=== PATIENT | female | born 1970 | race Caucasian/White ===

== ENCOUNTER 2016-04-22 13:05 | Emergency (ER) | payer OTHER ==
[2016-04-22 13:19] VITALS: BP 116/82; PULSE 73; RESP 16; TEMP 98.4; O2SAT 100
--- NOTE | 2016-04-22 13:28 | UCPHY ---
H & P Patient Type: Established Chief Complaint Nursing Narrative: rolled l ankle today, pain, slight swelling Time Seen by Provider: 04/22/16 13:19 HPI/ROS: CHIEF COMPLAINT: Left foot pain HISTORY OF PRESENT ILLNESS: Patient is a 45-year-old female who comes to the Urgent Care complaining of left foot pain. She states that around 10 o'clock this morning she was in a exercise class and stepped on a weight that was on the floor. She inverted her foot and has pain over the lateral midfoot. It radiates through to the bottom. No pain in ankle or heel. She has been able to ambulate. She denies other injuries. REVIEW OF SYSTEMS: Constitutional: denies: chills, fever, recent illness, recent injury EENTM: denies: blurred vision, double vision, nose congestion Respiratory: denies: cough, shortness of breath Cardiac: denies: chest pain, irregular heart rate, lightheadedness, palpitations Gastrointestinal/Abdominal: denies: abdominal pain, diarrhea, nausea, vomiting, blood streaked stools Genitourinary: denies: dysuria, frequency, hematuria, pain Musculoskeletal: See HPI Skin: denies: lesions, rash, jaundice, bruising Neurological: denies: headache, numbness, paresthesia, tingling, dizziness, weakness Hematologic/Lymphatic: denies: blood clots, easy bleeding, easy bruising Immunologic/allergic: denies: HIV/AIDS, transplant EXAM: GENERAL: Well-appearing, well-nourished and in no acute distress. HEAD: Atraumatic, normocephalic. EYES: Pupils equal round and reactive to light, extraocular movements intact, sclera anicteric, conjunctiva are normal. ENT: TMs normal, nares patent, oropharynx clear without exudates. Moist mucous membranes. NECK: Normal range of motion, supple without lymphadenopathy or JVD. LUNGS: Breath sounds clear to auscultation bilaterally and equal. No wheezes rales or rhonchi. HEART: Regular rate and rhythm without murmurs, rubs or gallops. ABDOMEN: Soft, nontender, normoactive bowel sounds. No guarding, no rebound. No masses appreciated. BACK: No CVA tenderness, no spinal tenderness, step-offs or deformities EXTREMITIES: See HPI NEUROLOGICAL: Cranial nerves II through XII grossly intact. Normal speech, normal gait. 5/5 strength, normal movement in all extremities, normal sensation PSYCH: Normal mood, normal affect. SKIN: Warm, dry, normal turgor, no visible rashes or lesions. Source: Patient Exam Limitations: No limitations - Personal History LMP (Females 10-55): 1-7 Days Ago - Medical/Surgical History Hx Asthma: No Hx Chronic Respiratory Disease: No Hx Diabetes: No Hx Cardiac Disease: No Hx Renal Disease: No Hx Cirrhosis: No Hx Alcoholism: No Hx HIV/AIDS: No Hx Splenectomy or Spleen Trauma: No Other PMH: denies - Family History Significant Family History: No pertinent family hx - Social History Smoking Status: Never smoked Alcohol Use: Sober Drug Use: None Constitutional: Initial Vital Signs Temperature (C) 36.9 C 04/22/16 13:17 Heart Rate 73 04/22/16 13:17 Respiratory Rate 16 04/22/16 13:17 Blood Pressure 116/82 H 04/22/16 13:17 O2 Sat (%) 100 04/22/16 13:17 O2 Delivery Mode Room Air Allergies/Adverse Reactions: No Known Allergies Allergy (Verified 11/18/13 15:50) Home Medications: Medication Instructions Recorded NK [No Known Home Meds] 04/22/16 Medical Decision Making - Diagnostics Imaging: X-ray: Ankle and foot was obtained. I viewed the images myself on the PACS system. My interpretation of the images is: negative for acute disease . The radiologist interpretation is negative. ED Course/Re-evaluation: Discussed the x-ray results. The patient is relieved. I will wrapped in an Neto wrap and encouraged her to continue ice, rest and anti-inflammatories. She agrees with this plan and will follow up with her primary physician. She declines further workup or testing. Differential Diagnosis: Partial list of the Differential diagnosis considered include but were not limited to; foot fracture, ankle fracture, ankle sprain, foot sprain and although unlikely based on the history and physical exam, I also considered knee injury infection, gout, arthritis. I discussed these differential diagnoses and the plan with the patient as well as the usual and expected course. The patient understands that the diagnosis is provisional and that in medicine we are not always correct and that further workup is often warranted. Usual and customary warnings were given. All of the patient's questions were answered. The patient was instructed to return to the emergency department should the symptoms at all worsen or return, otherwise to followup with the physician as we discussed. Departure - Departure Disposition: Home, Routine, Self-Care Clinical Impression: Foot sprain Qualifiers: Encounter type: initial encounter Laterality: left Qualified Code(s): S93.602A - Unspecified sprain of left foot, initial encounter Condition: Fair Instructions: Foot Sprain (ED) Referrals: Abhijit Matute MD [Medical Doctor] - As per Instructions - PQRS PQRS Measurement: Not applicable
== END 2016-04-22 14:27 | disposition home or self-care (01) ==
LOC: CED 13:05
DX: S93.602A Unspecified sprain of left foot, initial encounter (principal); X50.0XXA Overexertion from strenuous movement or load, initial encounter; Y93.A3 Activity, aerobic and step exercise; Y99.8 Other external cause status
CPT/HCPCS: 73610-PO; 73630-PO; 99214-PO; G0463-PO